=== PATIENT | female | born 1955 | race Caucasian/White ===

== ENCOUNTER 2021-02-04 09:44 | Day surgery (SDC) | payer MEDICARE, OTHER ==
[~2021-02-04] VITALS: Ht 172.7 cm; Wt 103.4 kg
[2021-02-04] MEDS ORDERED: BRINTELLIX5 MG (10:24)
[2021-02-04] MEDS ORDERED: ALPR.5 (10:24)
[2021-02-04] MEDS ORDERED: THYR60 (10:24)
--- NOTE | 2021-02-04 10:27 | NUR ---
02/04/21 1027 SURYA CROOKS ONE ATTEMPT IN RH BY ROSALIND MISSED ONE SUCCESSFUL BY ROSALIND IN RAC PT TOW
== END 2021-02-04 11:59 | disposition home or self-care (01) ==
LOC: ORSCSDS 09:44
PROVIDERS: Internal Medicine Gastroenterology
PROC: 0DBE8ZX Excision of Large Intestine, Via Natural or Artificial Opening Endoscopic, Diagnostic (ICD-10-PCS; principal; 2021-02-04 11:00)
DX: Z12.11 Encounter for screening for malignant neoplasm of colon (principal); K64.8 Other hemorrhoids; K57.30 Diverticulosis of large intestine without perforation or abscess without bleeding; G47.33 Obstructive sleep apnea (adult) (pediatric); F32.9 Major depressive disorder, single episode, unspecified; E66.9 Obesity, unspecified; Z68.34 Body mass index [BMI] 34.0-34.9, adult; Z79.899 Other long term (current) drug therapy
CPT/HCPCS: 88305; J2704; J7120

== ENCOUNTER 2025-01-17 12:00 | Day surgery (SDC) | payer OTHER ==
[~2025-01-17] VITALS: Ht 172.7 cm; Wt 109.3 kg
[~2025-01-17 12:00] MED LIST: ALPR.5; BRINTELLIX5 MG; Balanced Salt Epinephrine Irrigation Solution 500 mL IR SCH; Diazepam 5 MG Tab PO PRN; Diazepam 5 MG Tab PO SCH; Lidocaine HCl/Pf 1% 5 ML VIAL XX SCH; Moxifloxacin HCL 0.5 MG/0.1 ML 0.4MLSYR RIGHTEYE SCH; Ondansetron 4 MG SoluTab MM PRN; PHENYLEPHRINE\\TROPICAMIDE\\TETRACAINE OPHTHALMIC DILATING SOLN RIGHTEYE PRN; Povidone-Iodine 450 DROP/30 ML Solution ONE; Povidone-Iodine 450 DROP/30 ML Solution RIGHTEYE SCH; THYR60; Tetracaine HCl/Pf 0.5% Opth Soln 4 ml ONE; Triamcinolone Inj Susp 40 MG / ML 1ML Vial INJ SCH; Triamcinolone Inj Susp 40 MG / ML 1ML Vial ONE
[2025-01-17] MEDS ORDERED: MULTIVITAMIN (12:51)
--- NOTE | 2025-01-17 13:08 | NUR ---
01/17/25 Bekah Arriaza2: PATIENT REPORTS RIGHT EYE IS ALREADY UNCOMFORTABLE, STATES NOT REALLY PAINFUL, BUT IT IS BOTHERING HER.
[2025-01-17] MEDS ORDERED: Midazolam HCl 1MG / ML 2ML Vial ONE (13:39)
[2025-01-17] MEDS ORDERED: FentaNYL Citrate 50 MCG/ML 2 ML Injection ONE (13:47)
[2025-01-17 14:09] VITALS: BP 140/75
== END 2025-01-17 14:32 | disposition home or self-care (01) ==
LOC: ORSCSDS 12:00
PROVIDERS: Ophthalmology
PROC: 08RJ3JZ Replacement of Right Lens with Synthetic Substitute, Percutaneous Approach (ICD-10-PCS; principal; 2025-01-17 13:30)
DX: H25.813 Combined forms of age-related cataract, bilateral (principal); Z87.891 Personal history of nicotine dependence; H50.10 Unspecified exotropia; G47.33 Obstructive sleep apnea (adult) (pediatric)
CPT/HCPCS: J2250; J3010; J3301; V2632